=== PATIENT | female | born 1995 | race Caucasian/White ===

== ENCOUNTER 2021-06-26 08:34 | Emergency (ER) | payer MEDICAID, SELFPAY ==
[2021-06-26 08:43] VITALS: BP 137/95; PULSE 116; RESP 18; TEMP 36.3; O2SAT 100; BMI 30.9
--- NOTE | 2021-06-26 08:54 | XR_ITS ---
WS: [id number] XR chest 1V portable [id number] REASON FOR EXAM: dyspnea/cough FINDINGS: The heart and mediastinum are within normal limits. Calcified granulomatous disease bilaterally. No active pulmonary parenchymal or pleural disease. No significant abnormality of the bony thorax. XR/XR chest 1V portable [id number] IMPRESSION: No acute chest abnormality.
--- NOTE | 2021-06-26 08:54 | ECG_ITS ---
[facility] Test Date: 2021-06-26 Pat Name: Gypsy Ferrer Department: Room: Gender: Female Playback Operator: : 1995 Requested By: Surjit Boregs Order Number: [id number] Cheek MD: Terri Romo M.D. Measurements Intervals [place] Rate: 86 P: 55 OR: 153 QRS: 27 QRSD: 86 T: 40 QT: 311 QTc: 373 Interpretive Statements SINUS RHYTHM WITH SINUS ARRHYTHMIA POSSIBLE LEFT ATRIAL ENLARGEMENT [-0.1mV P-WAVE IN V1/V2] LOW QRS VOLTAGE IN PRECORDIAL LEADS [QRS DEFLECTION < 1.0 mV IN CHEST LEADS] No previous ECG available for comparison Electronically Signed On 06-27-2021 9:38:11 CDT by Terri Romo M.D. [id number]
[2021-06-26 08:57] VITALS: BP 120/86; PULSE 118; O2SAT 100
[2021-06-26 09:05] VITALS: BP 115/88; BP 120/90; BP 132/80; PULSE 110; PULSE 129; PULSE 96
--- NOTE | 2021-06-26 09:06 | W.ED.GENADLT ---
HPI - General Adult General: Chief complaint: General Medical Stated complaint: Tingling head, dizziness Time Seen by Provider: 06/26/21 08:36 History of Present Illness: HPI narrative: 26-year-old female presents emergency room with complaints of tingling and pressure in her scalp onset dizziness that is high. He has a secondary complaint states she has some discomfort in her thighs from varicose veins from previous . Her last delivery was approximately 2 and half years ago. She is not having any chest pain want in talking to her biggest focus seems to be on lightheaded-like feeling. She states is actually worse when she lays down she does not find anything that he relieves it. This is actually been going on for a couple of weeks intermittently but more intense today. She does not have any associated chest pain with it. For a time the patient has stopped her caffeine intake but then resumed because stopping did not seem to change any of her symptoms. She is quite anxious on arrival and is fairly tachycardic. Her heart rate within the 120s to 130s was initially evaluating her. Onset (ago): hour(s) Location: head Severity: mild Relieving factors: none Exacerbating factors: none Associated symptoms: Reports headache(s) and malaise; Deny chest pain, confusion, cough, diaphoresis, decreased appetite, dyspnea, fevers/chills, nausea, rash, palpitations, seizures, short of breath, syncope, vomiting or weakness Treatments prior to arrival: none Review of Systems Const: Reports: malaise; Denies: diaphoresis ENMT: Denies: throat pain, ear or mastoid pain, tinnitus, nasal discharge or nasal congestion Card: Denies: chest pain, palpitations or syncope Resp: Denies: dyspnea GI: Denies: nausea or vomiting : Denies: flank pain, difficulty voiding, dysuria, urinary frequency or urinary urgency Skin/Breast: Denies: rash Neuro: Reports: headache(s) and vertigo (mild); Denies: confusion Physical Exam Const: COMMON NORMALS: no acute distress GENERAL APPEARANCE: cooperative and comfortable ORIENTATION/CONSCIOUSNESS: Yes awake, Yes oriented to person, Yes oriented to place and Yes oriented to time HENMT: COMMON NORMALS: normocephalic, atraumatic, hearing grossly normal bilaterally, external ears normal, EAC's normal, TM's normal bilaterally, Normal nasal mucous membranes and turbinates present, moist oral mucous membranes and oropharynx normal HEAD & SCALP: normocephalic and atraumatic NOSE: Normal nasal mucous membranes and turbinates present EXTERNAL EAR: Yes external ears normal EXTERNAL AUDITORY CANAL: EAC's normal TYMPANIC MEMBRANE: TM's normal bilaterally Eye: COMMON NORMALS: Equal, round and reactive pupils present, EOMs intact bilaterally, conjunctivae normal and no scleral icterus CONJUNCTIVA: Yes conjunctivae normal PUPIL: Yes Equal, round and reactive pupils present Neck/C-Spine: COMMON NORMALS: full ROM, no lymphadenopathy, supple and no JVD Lymph: LYMPHATIC: no lymphadenopathy noted and no lymphedema noted Resp: COMMON NORMALS: normal respiratory effort, No retractions, No use of accessory muscles and clear to auscultation bilaterally AUSCULTATION: clear to auscultation bilaterally Cardio: COMMON NORMALS: no JVD, regular rate, regular rhythm and No murmurs present (Cardio) RATE: regular rate RHYTHM: regular rhythm GI: COMMON NORMALS: Soft to palpation and No hepatosplenomegaly present AUSCULTATION: Yes normoactive bowel sounds PALPATION: Yes Soft to palpation, No Tenderness to palpation present (GI), No Guarding due to palpation present (GI) and Yes No hepatosplenomegaly present Extremity: COMMON NORMALS: normal to inspection, capillary refill normal, no clubbing, cyanosis or edema, no calf tenderness and no pedal edema Neuro: SENSORIUM/ORIENTATION: Yes oriented to person, Yes oriented to place and Yes oriented to time Skin: COMMON NORMALS: no rashes or lesions noted GENERAL SKIN EXAM: no rashes or lesions noted Course Vital Signs: Vital signs: Vital Signs Temperature 97.3 F L 06/26/21 08:43 Pulse Rate 65 06/26/21 11:58 Respiratory Rate 18 06/26/21 08:43 Blood Pressure 106/79 06/26/21 11:58 Pulse Oximetry 99 06/26/21 11:58 MDM - General Adult MDM Narrative: Medical decision making narrative: Labs imaging EKG reviewed as on the chart. Patient no reproducible symptoms while she was here and had no other problems. She was mildly orthostatic which improved and her symptoms resolved after fluids. We will go ahead and discharge her home meclizine as needed follow-up with her primary care doctor return if has further problems. Lab Data: Labs: Lab Results 06/26/21 06/26/21 06/26/21 09:01 09:23 09:23 WBC 5.5 10^3/uL 10^3/ uL (4.0-10.0) RBC 4.70 10^6/uL 10^6 /uL (4.1-5.3) Hgb 14.8 g/dL g/dL (11.5-15.3) Hct 43.5 % % (37.0-47.0) MCV 92.6 fl fl (81-99) MCH 31.5 pg pg (28.0-34.0) MCHC 34.0 g/dL g/dL (30.0-36.0) RDW 11.7 % L % (12.1-15.1) Plt Count 307 10^3/cmm 10^3 /cmm (130-400) MPV 11.5 fL H fL (7.4-10.4) Neut % (Auto) 53.9 % % Lymph % (Auto) 39.8 % % [place] % (Auto) 5.3 % % Eos % (Auto) 0.4 % % Baso % (Auto) 0.4 % % Neut # (Auto) 2.97 10^3/uL 10^3 /uL (1.8-7.7) Lymph # (Auto) 2.2 10^3/uL 10^3/ uL (0.8-4.8) [place] # (Auto) 0.3 10^3/uL 10^3/ uL (0.2-0.9) Eos # (Auto) 0.0 10^3/uL 10^3/ uL (0.0-0.8) Baso # (Auto) 0.0 10^3/uL 10^3/ uL (0.0-0.1) Nucleated RBC % (a uto) 0 % % Nucleated RBCs # 0.0 /100WBC /100W BC Sodium 136 mmol/L mmol/L (136-145) Potassium 4.3 mmol/L mmol/L (3.5-5.1) Chloride 102 mmol/L mmol/L (98-107) Carbon Dioxide 24 mmol/L mmol/L (22-29) Anion Gap 14.3 (5-19) BUN 12 mg/dL mg/dL (6-20) Creatinine 0.7 mg/dL mg/dL (0.5-0.9) GFR Calculation 99.6 mL/min mL/mi n (90-130) Glucose 107 mg/dL mg/dL (65-115) Calculated Osmolal ity 282 mOsm/kg L mOs m/kg (285-295) Calcium 9.3 mg/dL mg/dL (8.5-10.5) Total Bilirubin 0.3 mg/dL mg/dL (0.15-1.2) AST 21 U/L U/L (0-32) ALT 9 U/L U/L (0-33) Alkaline Phosphata se 95 IU/L IU/L (35-105) Total Protein 7.6 g/dL g/dL (6.6-8.7) Albumin 4.1 g/dL g/dL (3.5-5.2) Globulin 3.5 g/dL g/dL (1.3-4.6) Urine Color Yellow (Yellow) Urine Appearance Clear (CLEAR) Urine pH 8 H (5-7) Ur Specific Gravit y 1.005 (1.005-1.030) Urine Protein Neg (Negative) Urine Glucose (UA) Norm (Normal) Urine Ketones Negative (Negative) Urine Blood Neg (Negative) Urine Nitrate Negative (Negative) Urine Bilirubin Neg (Negative) Prot Sulfosalicyli c Acd Negative (Negative) Urine Urobilinogen Norm mg/dL mg/dL (Negative) Ur Leukocyte Mya ase Negative (Negative) Discharge Plan Discharge Patient Disposition: Home Clinical Impression: Orthostasis, Vertigo Condition: Stable Prescriptions: New meclizine 25 mg tablet 25 mg PO TID PRN (Reason: dizziness) Qty: 14 RF: 0 Discharge Orders: Discharge ED (Routine); Ordered 06/26/21 Ordered By: Surjit Guzman Discharge Diet: Usual diet Discharge Activity: Increase activity as tolerated Patient Instructions: Opioid Safety Coding Level of Care Code ED Underwriting Director for Severo Jo
[2021-06-26 09:18] LABS: Add Urine Microscopic? NO; Charge for UA Resulting for Rev
[2021-06-26 09:21] VITALS: BP 120/85; PULSE 99; O2SAT 100
[2021-06-26 09:34] VITALS: BP 96/75; PULSE 101; O2SAT 99
[2021-06-26 09:42] LABS: Basophils % 0.4 %; Eosinophils % 0.4 %; Hematocrit 43.5 % (37.0-47.0); Hemoglobin 14.8 g/dL (11.5-15.3); Lymphocytes # 2.2 10^3/uL (0.8-4.8); Lymphocytes % 39.8 %; Mean Corpuscular Hemoglobin 31.5 pg (28.0-34.0); Mean Corpuscular Volume 92.6 fl (81-99); Mean Platelet Volume 11.5 fL (7.4-10.4); Monocytes # 0.3 10^3/uL (0.2-0.9); Monocytes % 5.3 %; Neutrophils # 2.97 10^3/uL (1.8-7.7); Neutrophils % 53.9 %; Nucleated Red Blood Cells % 0 %; Platelet Count 307 10^3/cmm (130-400); Red Cell Distribution Width 11.7 % (12.1-15.1); White Blood Count 5.5 10^3/uL (4.0-10.0)
[2021-06-26 09:44] LABS: Bilirubin Urine Neg (Negative); Blood Urine Neg (Negative); Glucose Urine UA Norm (Normal); Ketones Urine Negative (Negative); Leukocyte Esterase Urine Negative (Negative); Nitrate Urine Negative (Negative); Protein Urine Neg (Negative); Specific Gravity, Urine 1.005 (1.005-1.030); Urine Appearance Clear (CLEAR); Urine Color Yellow (Yellow); Urobilinogen Urine Norm (Negative); pH Urine 8 (5-7)
[2021-06-26 09:45] LABS: Sulfosalicylic Acid Urine Negative (Negative)
[2021-06-26 10:13] LABS: Alanine Aminotransferase 9 U/L (0-33); Albumin Level 4.1 g/dL (3.5-5.2); Alkaline Phosphatase 95 IU/L (35-105); Anion Gap 14.3 (5-19); Aspartate Amino Transferase 21 U/L (0-32); Blood Urea Nitrogen 12 mg/dL (6-20); Calcium 9.3 mg/dL (8.5-10.5); Carbon Dioxide 24 mmol/L (22-29); Chloride 102 mmol/L (98-107); Globulin 3.5 g/dL (1.3-4.6); Glomerular Filtration Rate 99.6 mL/min (90-130); Glucose 107 mg/dL (65-115); Osmolality Calculated 282 mOsm/kg (285-295); Potassium 4.3 mmol/L (3.5-5.1); Sodium 136 mmol/L (136-145); Total Bilirubin 0.3 mg/dL (0.15-1.2); Total Protein 7.6 g/dL (6.6-8.7)
[2021-06-26] MEDS: sodium chloride 0.9% 1,000 ML 999 ML IV (11:05)
[2021-06-26 11:58] VITALS: BP 106/79; PULSE 65; O2SAT 99
== END 2021-06-26 12:00 | disposition home or self-care (01) ==
PROVIDERS: Emergency Provider Family Medicine
DX: I95.1 Orthostatic hypotension (principal); R42 Dizziness and giddiness
CPT/HCPCS: 71045; 80053; 81003; 85025; 93005; 96360; 99284; J7030

== ENCOUNTER → 2022-03-19 10:45 | Outpatient (BNVA) | payer BC, MEDICAID, SELFPAY | PROVIDERS: PCP Family Medicine; Visit Provider Thoracic Surgery (Cardiothoracic Vascular Surgery) | DX: I83.90 Asymptomatic varicose veins of unspecified lower extremity (principal) | CPT/HCPCS: 99203 ==

== ENCOUNTER 2022-05-05 13:55 | Outpatient (CLI) | payer BC, MEDICAID, SELFPAY ==
--- NOTE | 2022-05-05 14:00 | USCV_ITS ---
Gypsy Ferrer Age: 26 Gender: F : 1995 Exam Date: 05/05/2022 14:16 Ordering Phys: Bro Mesa MD (Andy) ([email or web address]) Technologist: Orion Purvis [place]am [place] [facility] [place]: HISTORY: PROCEDURES: Bilateral duplex Venous Insufficiency study of the Deep and Superficial systems was carried out according to normal protocol with the patient in supine positon for deep system and dependent position for the superficial system. FINDINGS: All deep veins demonstrated compressibility without evidence of intraluminal thrombus or increased echogenicity. Spectral analysis of Doppler signals demonstrates normal response to compression maneuvers indicating patency without obstruction. There is significant reflux in both great saph veins distally, this patients anatomy would make both legs good canidates for ablation. CONCLUSIONS #1. No evidence of DVT in the above-mentioned identifiable veins. #2. No significant deep vein reflux bilaterally. #3. On the right side, significant venous reflux of greater than 500 ms(3850) was noted at the distal greater saphenous vein segment. This venous segment was measuring 0.4 cm in diameter and at a depth of 1.53 cm. #4. On the left side, significant venous reflux of greater than 500 ms (1720) was noted at the below-knee segment of the greater saphenous vein. This venous segment was measuring 0.32 cm in diameter and was at a depth of 1.05 cm from the surface. No similar previous studies are available for comparison Dr Kiran Tom MD [facility] (Electronically Signed) Final Date: 05 May 2022 20:43 S
== END 2022-05-05 13:56 | disposition home or self-care (01) ==
LOC: RAD 13:55
PROVIDERS: PCP Family Medicine; Visit Provider Thoracic Surgery (Cardiothoracic Vascular Surgery)
DX: I83.90 Asymptomatic varicose veins of unspecified lower extremity (principal); I87.2 Venous insufficiency (chronic) (peripheral)
CPT/HCPCS: 93970

== ENCOUNTER 2022-12-29 05:39 | Day surgery (SDC) | payer BC, MEDICAID, SELFPAY ==
[2022-12-28 08:42] VITALS: BMI 32.3
[2022-12-29] VITALS (7 sets, daily range): BP systolic 105–124; BP diastolic 67–84; PULSE 67–85; RESP 16; TEMP 36.4–36.6; O2SAT 96–100
[2022-12-29 06:29] LABS: OR HCG Qualitative Urine Negative (Negative)
--- NOTE | 2022-12-29 06:31 | PM.HP ---
Providers/Chief Complaint Admitting Physician: Dr. Mesa Primary Care Provider: Chandler Muniz MD Chief Complaint: I83.899 History of Present Illness Gypsy Ferrer is a 27 year old female whom I originally saw in consultation on March 19 of last year for symptomatic varicose veins bilaterally more so on the right than the left. There was associated concentration of varicose veins of the medial portion of the mid right thigh and proximal medial portion of the left calf. These have become most apparent after delivery of her second child. No history for DVT or claudication symptoms. No history for major trauma. She does wear compression routinely and does note symptomatic improvement with compressive therapy. Previous venous duplex study of May 05 of last year revealed significant venous reflux on both sides with the right side being most prominent though the left side was also involved. Her greatest symptoms are in the mid and distal medial right thigh. We originally had scheduled surgery for late July as her travels out of town frequently and she wanted him to be present. Unfortunate, this surgery had to be rescheduled and she therefore presents today with her for planned RF catheter ablation of the right greater saphenous vein. Review of Systems Const: Denies: fever(s), chills, change in appetite, change in weight, fatigue or night sweats Eyes: Denies: change in vision or blurry vision ENMT: Denies: odynophagia or hoarseness Card: Denies: chest pain, palpitations, irregular heart rhythm or edema Resp: Denies: dyspnea or productive cough GI: Denies: abdominal pain, nausea, vomiting, dysphagia, heartburn or change in bowel habits : Denies: dysuria, urinary frequency, urinary urgency or urinary hesitancy Musc: Reports: back pain, extremity pain, extremity swelling and joint pain Skin/Breast: Denies: rash Neuro: Denies: headache(s), numbness in extremities, weakness in extremities or sensory changes Psych: Denies: anxiety, depression or change in appetite Endo: Denies: polyuria, polydipsia or cold intolerance Jalen/Lymph: Denies: easy bruising, easy bleeding, petechiae or enlarged lymph nodes All/Imm: Reports: urticaria Medications/Allergies Home Medications Medication Instructions Recorded Confirmed Last Taken Type ibuprofen 200 mg tablet 200 mg PO Q6H PRN Pain 03/19/22 12/29/22 Unknown History sertraline 50 mg tablet 50 mg PO DAILY 08/24/22 12/29/22 12/28/22 History Allergies Allergy/AdvReac Type Severity Reaction Status Date / Time erythromycin base Allergy Mild Unknown Verified 08/24/22 09:54 hydrocodone Allergy Mild ALGY-Hives Verified 08/24/22 09:54 PFSH Acute PFSH: Medical History (Updated 12/29/22 @ 06:37 by Bro Mesa MD) Varicose veins of lower extremity Family History Father CAD (coronary artery disease) Mother Cancer Hypertension Denies family history of Diabetes Stroke Social History Smoking and tobacco status: current every day smoker cigarettes Packs smoked per day: 0.5 Years cigarettes smoked: 9 Alcohol intake: current Alcohol intake frequency: holidays/special occasions only Lives independently: Yes Household members: spouse and children Housing: Manufactured/Mobile home Marital status: Number of children: 2 Pets and animals: Yes Pets & animals: cat(s) and dog(s) Female Reproductive History: Date of last menstrual period: 12/19/22 Vitals/I&O/Wt Last Vital Signs Temp 97.6 F 12/29/22 06:07 Pulse 69 12/29/22 06:07 Resp 16 12/29/22 06:07 BP 119/69 12/29/22 06:07 Pulse Ox 99 12/29/22 06:07 O2 Del Method 12/29/22 06:07 Weight last 48 hrs Weight 177 lb Physical Exam HENMT: COMMON NORMALS: normocephalic, atraumatic, hearing grossly normal bilaterally and external ears normal Eye: COMMON NORMALS: EOMs intact bilaterally and conjunctivae normal Neck/C-Spine: COMMON NORMALS: full ROM and no lymphadenopathy Resp: COMMON NORMALS: normal respiratory effort, No use of accessory muscles and clear to auscultation bilaterally Cardio: COMMON NORMALS: regular rate, regular rhythm, S1 normal heart sound present and No murmurs present (Cardio) GI: COMMON NORMALS: Normal to inspection, nondistended, normoactive bowel sounds present Extremity: NARRATIVE EXTREMITY EXAM: Bilateral varicose veins with the most prominent being in the medial mid and proximal right thigh. Mild edema. CEAP classification C3 Neuro: COMMON NORMALS: patient oriented x3, moves all extremities, no focal motor deficits, no sensory deficits noted and gait normal Psych: COMMON NORMALS: mental status grossly normal and Normal thought process present Skin: COMMON NORMALS: no rashes or lesions noted and no wounds A&P Assessment and plan (1) Varicose veins of lower extremity: Documented bilateral lower extremity greater saphenous vein reflux right greater than left. She does have improvement with compressive therapy. Greatest symptoms are in the right mid thigh region. We have discussed consideration for RF catheter ablation of the right greater saphenous vein with the intent to improve her symptoms though long-term compression will still be recommended. Details and risk of procedure were carefully reviewed including potential risk for deep venous thrombosis, infection, pulmonary embolism, failure to benefit, inability to complete the procedure. Pain with the procedure or after the procedure, need for long-term surveillance, need for long-term compressive therapy. She stated understanding and does wish to proceed with understanding that this procedure will hopefully improve her symptoms though may not completely resolve. Attestations Medical Necessity Statement*: Symptomatic bilateral lower extremity varicose veins, right greater than left. Improvement with compressive therapy. Documented substantial reflux in the greater saphenous vein system bilaterally. Coding Level of Care Code Acute Code for [facility] Fwd Diagnoses Varicose veins of lower extremity I83.90
[2022-12-29] MEDS: diazePAM 5 mg Tablet 10 MG PO (06:36)
[2022-12-29] MEDS: lidocaine 1% INJ 10 mL (per mL) XX (07:01)
--- NOTE | 2022-12-29 07:59 | PM.OP ---
Operative Report Date of procedure: December 29, 2022 Pre-op diagnosis: Symptomatic varicose veins right lower extremity Post-op diagnosis: same Procedure done: Aborted RF catheter ablation of right greater saphenous vein Pathology: none sent Surgeon: Bro Mesa Anesthesia: Local Condition: stable Disposition: same day Brief History: Ms. Ferrer is a 27-year-old female with documented venous insufficiency of the lower extremity greater saphenous veins bilaterally, right greater than left. She presents for scheduled RF catheter ablation of right greater saphenous vein. Details of risk of the procedure were carefully and frankly discussed and appropriate consents have been reviewed and signed. Procedure: Ms. Ferrer with catheter position. Preoperative investigation by ultrasonography revealed the greater saphenous vein was small below the knee level. It also was beneath the fascial layer in mid thigh. Following this, an appropriate timeout was completed and then she was sterilely prepped and draped. 1% lidocaine was infiltrated at the distal thigh level at which time with ultrasound guidance, introducer needle was inserted into the greater saphenous vein. Flashback was encountered though guidewire could not be threaded. There was immediate spasm of the saphenous vein there was distal portion in the thigh and despite multiple attempts, the vessel could not be reengaged. Upon continued inspection by ultrasonography, it was determined that this portion of the saphenous vein had actually thrombosed and this included up to the mid thigh level involving a large botany teacher. Visual inspection of the skin surface at this level revealed that the previously noted prominent varicose veins were no longer visible. At this point, I elected to abort the procedure given the amount of thrombus in this portion of the vein. Leg was in The wrap. I did discuss with Ms. Ferrer our findings and recommended a repeat ultrasound in 2 weeks to determine whether this portion of the saphenous vein is remained thrombosed with needle manipulation. Clinically, it is evident that her prominent varicose veins in the mid distal thigh are not near as prominent. I recommended she wear compression is much as possible over the next 2 weeks. We will then have her follow-up with repeat ultrasound to determine the status of her greater saphenous vein at that time.
== END 2022-12-29 08:18 | disposition home or self-care (01) ==
PROVIDERS: Anesthesiology; PCP Family Medicine; Visit Provider Thoracic Surgery (Cardiothoracic Vascular Surgery)
PROC: (CPT 36475; principal; 2022-12-29 07:00)
DX: I83.893 Varicose veins of bilateral lower extremities with other complications; F17.210 Nicotine dependence, cigarettes, uncomplicated; I82.811 Embolism and thrombosis of superficial veins of right lower extremity
CPT/HCPCS: 36475; 84703

== ENCOUNTER 2023-02-12 11:56 | Outpatient (CLI) | payer BC, MEDICAID, SELFPAY ==
--- NOTE | 2023-02-12 12:30 | USCV_ITS ---
[facility] Age: 27 Gender: F : 1995 Exam Date: 02/12/2023 12:52 Ordering Phys: Bro Mesa MD (Andy) ([email or web address]) Technologist: Jelly Michael [place] [facility] [place]: HISTORY: Painful legs PROCEDURES: The venous duplex Doppler examination of both lower extremities was performed in the standard fashion. The following venous structures were evaluated: common femoral vein,proximal greater saphenous vein, superficial femoral vein, and the popliteal vein.and SSV bilaterally FINDINGS: see tech notes. The veins were found to be easily compressible with spontaneous blood flow. Non pulsatile flow pattern. The right side, the greater saphenous vein at the mid segment was found to have a reflux time of 1.95-second with a diameter of 0.33 cm at a depth of 1.6 cm. The proximal small saphenous vein on the right side was 0.19 cm in diameter and at a depth of less than 1 cm from the surface. The posterior calf area was found to have very tortuous, dilated and superficial veins which are tender.. The vein was found to be emptying into the mid greater saphenous vein. The proximal small saphenous vein segment was found to have a reflux time of 994 ms.. The mid small saphenous vein was found to have a reflux time of 2630 ms, and at a depth of 1.46 cm. It was measuring 0.19 cm in diameter. On the left side, the mid small saphenous vein was found to have a reflux time of 2600 ms, at a depth of 1.36 cm and with a diameter of 0.36 cm. CONCLUSIONS 1. No evidence of DVT or superficial vein thrombosis. 2. Painful varicose vein on the posterior aspect of the right calf, appears to be draining into the mid greater saphenous vein segment. No evidence of thrombosis. 3. Significant venous reflux of greater than 500 ms in a relatively small caliber small saphenous vein on the right side. The venous diameter, depth and reflux time as mentioned above. 4. Significant reflux of greater than 500 ms also was noted in the mid small saphenous vein segment on the left side. The depth, venous dimension and reflux time as mentioned above. 5. Significant venous reflux of greater than 500 ms noted in the mid greater saphenous vein segment on the right side. Details as mentioned above. Dr Kiran Tom MD [facility] (Electronically Signed) Final Date: 16 March 2023 09:28 S
== END 2023-02-12 11:57 | disposition home or self-care (01) ==
LOC: RAD 12:00
PROVIDERS: PCP Family Medicine; Visit Provider Thoracic Surgery (Cardiothoracic Vascular Surgery)
DX: I83.90 Asymptomatic varicose veins of unspecified lower extremity (principal); M79.605 Pain in left leg; M79.604 Pain in right leg; R93.6 Abnormal findings on diagnostic imaging of limbs
CPT/HCPCS: 93970

== ENCOUNTER 2024-12-13 12:31 | Emergency (ER) | payer BC, MEDICAID, SELFPAY ==
[2024-12-13 12:44] VITALS: BP 123/79; PULSE 86; RESP 16; TEMP 36.9; O2SAT 100; BMI 27.1
[2024-12-13 13:03] LABS: Basophils % 0.4 %; Eosinophils # 0.1 10^3/uL (0.0-0.8); Eosinophils % 0.9 %; Hematocrit 41.3 % (36-47); Lymphocytes # 2.5 10^3/uL (0.8-4.8); Lymphocytes % 45.1 %; Mean Corpuscular HGB Conc 35.1 g/dL (30-55); Mean Corpuscular Volume 93.9 fl (85-98); Mean Platelet Volume 11.2 fL (7.4-10.4); Monocytes # 0.4 10^3/uL (0.2-0.9); Monocytes % 7.5 %; Neutrophils # 2.53 10^3/uL (1.8-7.7); Neutrophils % 45.9 %; Nucleated Red Blood Cells % 0 %; Platelet Count 240 10^3/cmm (157-399); Red Cell Distribution Width 11.5 % (12.1-15.1)
[2024-12-13 13:21] LABS: HCG, Serum Qual Negative (Negative)
--- NOTE | 2024-12-13 13:21 | W.ED.ABDPA2 ---
HPI - Abdominal Pain General: Chief Complaint: Abdominal Pain Stated Complaint: Left side pain, was sent by Michael Christensen sent Time Seen by Provider: 12/13/24 12:36 History of Present Illness: 29-year-old female presents emergency room complaining of left side pain she is seen in the local walk-in clinic and directed to the emergency room out of concern for possible renal stones. She denies dysuria urgency or frequency or hematuria Associated Symptoms: Denies chills, dysuria and fever(s) Related Data Home Medications ?Medication ?Instructions ?Recorded ?Confirmed ibuprofen 200 mg tablet 200 mg PO Q6H PRN Pain 03/19/22 02/16/23 bupropion HCl 150 mg 24 hr tablet, 150 mg PO QAM 02/16/23 02/16/23 extended release (Wellbutrin XL) Allergies Allergy/AdvReac Type Severity Reaction Status Date / Time erythromycin base Allergy Mild Unknown Verified 02/16/23 14:57 hydrocodone Allergy Mild ALGY-Hives Verified 02/16/23 14:57 Review of Systems Const: Denies: fever(s) or chills Card: Denies: chest pain Resp: Denies: dyspnea GI: Denies: abdominal pain : Denies: flank pain, dysuria, urinary frequency or urinary urgency Musc: Denies: neck pain or back pain Skin/Breast: Denies: rash PFSH ED PFSH: Medical History Varicose veins of lower extremity Family History Father CAD (coronary artery disease) Mother Cancer Hypertension Denies family history of Diabetes Stroke Social History Smoking and tobacco/nicotine status: current every day tobacco/nicotine user cigarettes Packs smoked per day: 0.5 Years cigarettes smoked: 9 Alcohol intake: current Alcohol intake frequency: holidays/special occasions only Substance/Drug Use: never Lives independently: Yes Household members: spouse and children Housing: Manufactured/Mobile home Marital status: Number of children: 2 Pets and animals: Yes Pets & animals: cat(s) and dog(s) Physical Exam Const: COMMON NORMALS: no acute distress GENERAL APPEARANCE: cooperative and comfortable ORIENTATION/CONSCIOUSNESS: Yes awake, Yes oriented to person, Yes oriented to place and Yes oriented to time HENMT: COMMON NORMALS: normocephalic, atraumatic and hearing grossly normal bilaterally HEAD & SCALP: normocephalic and atraumatic Resp: COMMON NORMALS: normal respiratory effort, No retractions, No use of accessory muscles and clear to auscultation bilaterally AUSCULTATION: clear to auscultation bilaterally Cardio: COMMON NORMALS: regular rate, regular rhythm and No murmurs present (Cardio) RATE: regular rate RHYTHM: regular rhythm GI: COMMON NORMALS: Soft to palpation and No hepatosplenomegaly present AUSCULTATION: Yes normoactive bowel sounds PALPATION: Yes Soft to palpation, No Tenderness to palpation present (GI), No Guarding due to palpation present (GI) and Yes No hepatosplenomegaly present : COMMON NORMALS: Yes no CVA tenderness BLADDER/KIDNEY EXAM: Yes no CVA tenderness Back/Pelvis: COMMON NORMALS: no CVA tenderness Extremity: COMMON NORMALS: normal to inspection, capillary refill normal, no clubbing, cyanosis or edema, no calf tenderness and no pedal edema Neuro: SENSORIUM/ORIENTATION: Yes oriented to person, Yes oriented to place and Yes oriented to time Skin: COMMON NORMALS: no rashes or lesions noted GENERAL SKIN EXAM: no rashes or lesions noted Course Vital Signs: Vital signs: Vital Signs Temperature 98.5 F 12/13/24 12:44 Pulse Rate 86 12/13/24 12:44 Respiratory Rate 16 12/13/24 12:44 Blood Pressure 123/79 12/13/24 12:44 Pulse Oximetry 100 12/13/24 12:44 Oxygen Delivery Me thod Room Air 12/13/24 12:44 MDM - Abdominal Pain Medical Decision Making Patient has no pain while waiting for urine came back and she decided she would leave AMA 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 Before the chest doctor she left the department nurses tried to discourage her from leaving. Medical Records I reviewed the patient's medical records. Lab Data I reviewed the patient's lab results. 12/13/24 12:56 12/13/24 12:56 Labs/Radiology: Laboratory Results WBC 5.50 10^3/uL (3.29-11.43) 12/13/24 12:56 RBC 4.40 10^6/uL (3.85-5.65) 12/13/24 12:56 Hgb 14.50 g/dL (11.27-16.99) 12/13/24 12:56 Hct 41.3 % (36-47) 12/13/24 12:56 MCV 93.9 fl (85-98) 12/13/24 12:56 MCH 33.0 pg (27-33) 12/13/24 12:56 MCHC 35.1 g/dL (30-55) 12/13/24 12:56 RDW 11.5 % (12.1-15.1) L 12/13/24 12:56 Plt Count 240 10^3/cmm (157-399) 12/13/24 12:56 MPV 11.2 fL (7.4-10.4) H 12/13/24 12:56 Neut % (Auto) 45.9 % 12/13/24 12:56 Lymph % (Auto) 45.1 % 12/13/24 12:56 [place] % (Auto) 7.5 % 12/13/24 12:56 Eos % (Auto) 0.9 % 12/13/24 12:56 Baso % (Auto) 0.4 % 12/13/24 12:56 Neut # (Auto) 2.53 10^3/uL (1.8-7.7) 12/13/24 12:56 Lymph # (Auto) 2.5 10^3/uL (0.8-4.8) 12/13/24 12:56 [place] # (Auto) 0.4 10^3/uL (0.2-0.9) 12/13/24 12:56 Eos # (Auto) 0.1 10^3/uL (0.0-0.8) 12/13/24 12:56 Baso # (Auto) 0.0 10^3/uL (0.0-0.1) 12/13/24 12:56 Nucleated RBC % (auto) 0 % 12/13/24 12:56 Nucleated RBCs # 0.0 /100WBC 12/13/24 12:56 Sodium 134 mmol/L (136-145) L 12/13/24 12:56 Potassium 3.9 mmol/L (3.5-5.1) 12/13/24 12:56 Chloride 100 mmol/L (98-107) 12/13/24 12:56 Carbon Dioxide 24 mmol/L (22-29) 12/13/24 12:56 Anion Gap 13.9 (5-19) 12/13/24 12:56 BUN 9 mg/dL (6-20) 12/13/24 12:56 Creatinine 0.7 mg/dL (0.5-0.9) 12/13/24 12:56 GFR Calculation 97.6 mL/min (90-130) 12/13/24 12:56 Glucose 95 mg/dL (65-115) 12/13/24 12:56 Calculated Osmolality 276 mOsm/kg (285-295) L 12/13/24 12:56 Calcium 8.9 mg/dL (8.5-10.5) 12/13/24 12:56 Total Bilirubin 0.4 mg/dL (0.15-1.2) 12/13/24 12:56 AST 12 U/L (0-32) 12/13/24 12:56 ALT 10 U/L (0-33) 12/13/24 12:56 Alkaline Phosphatase 67 U/L (35-105) 12/13/24 12:56 Total Protein 6.9 g/dL (6.6-8.7) 12/13/24 12:56 Albumin 4.3 g/dL (3.5-5.2) 12/13/24 12:56 Globulin 2.6 g/dL (1.3-4.6) 12/13/24 12:56 HCG, Qual Negative (Negative) 12/13/24 12:56 All radiology interpretation(s) finalized by discharge Discharge Plan Discharge Patient Disposition: Left Against Medical Advice Clinical Impression: Acute left flank pain Condition: Stable Prescriptions: No Action ibuprofen 200 mg tablet 200 mg PO Q6H PRN (Reason: Pain) bupropion HCl [Wellbutrin XL] 150 mg tablet extended release 24 hr 150 mg PO QAM Referrals: Chandler Muniz MD [Primary Care Provider] - Print Language: [place] Coding Level of Care Code ED [employer] Serv[employer] for Severo Jo
[2024-12-13 13:28] LABS: Alanine Aminotransferase 10 U/L (0-33); Albumin Level 4.3 g/dL (3.5-5.2); Alkaline Phosphatase 67 U/L (35-105); Anion Gap 13.9 (5-19); Aspartate Amino Transferase 12 U/L (0-32); Blood Urea Nitrogen 9 mg/dL (6-20); Calcium 8.9 mg/dL (8.5-10.5); Carbon Dioxide 24 mmol/L (22-29); Chloride 100 mmol/L (98-107); Globulin 2.6 g/dL (1.3-4.6); Glomerular Filtration Rate 97.6 mL/min (90-130); Glucose 95 mg/dL (65-115); Osmolality Calculated 276 mOsm/kg (285-295); Potassium 3.9 mmol/L (3.5-5.1); Sodium 134 mmol/L (136-145); Total Bilirubin 0.4 mg/dL (0.15-1.2); Total Protein 6.9 g/dL (6.6-8.7)
== END 2024-12-13 14:04 | disposition left against medical advice (07) ==
PROVIDERS: Emergency Provider Family Medicine; PCP Family Medicine
DX: R10.9 Unspecified abdominal pain (principal); F17.210 Nicotine dependence, cigarettes, uncomplicated
CPT/HCPCS: 36415; 80053; 84703; 85025; 99283